=== PATIENT | female | born 1975 | race Caucasian/White ===

== ENCOUNTER 2017-02-23 12:00 | Outpatient (RCR) | payer OTHER ==
[~2017-02-23 12:00] MED LIST: ATIVAN 0.50.5 MG/TAB PO; DHA PO; INSULIN 75/2100 U/ML SQ; MVI; NORCO 325 MG-51 TAB PO; NOVOLIN N100 U/ML SC; ZOLOFT 50MG50 MG PO
== END 2017-02-24 08:21 | disposition home or self-care (01) ==
LOC: MKS.ESL.PT 12:00
DX: S16.1XXD Strain of muscle, fascia and tendon at neck level, subsequent encounter (principal); S39.012D Strain of muscle, fascia and tendon of lower back, subsequent encounter; S76.011D Strain of muscle, fascia and tendon of right hip, subsequent encounter; V87.3 Person injured in collision between car and bus (traffic)

== ENCOUNTER 2017-03-01 10:27 | Outpatient (RCR) | payer OTHER | END 2017-04-06 | LOC: WSOH | DX: S16.1XXA Strain of muscle, fascia and tendon at neck level, initial encounter (principal); S39.012A Strain of muscle, fascia and tendon of lower back, initial encounter; S76.011A Strain of muscle, fascia and tendon of right hip, initial encounter; V73.5XXA Driver of bus injured in collision with car, pick-up truck or van in traffic accident, initial encounter; Y99.0 Civilian activity done for income or pay ==

== ENCOUNTER → 2017-03-02 | Outpatient (CLI) | payer OTHER ==
[~2017-03-02] MED LIST changes: +EPA FISH OIL1 SGL PO; +MULTI VITAMINS1 TAB PO; +VITAMINC1000TA
== END ==
LOC: MC.RAD 07:55
DX: Z12.31 Encounter for screening mammogram for malignant neoplasm of breast (principal); N63 Unspecified lump in breast

== ENCOUNTER → 2017-03-09 | Outpatient (CLI) | payer OTHER | LOC: MC.RAD 10:54 | DX: N63 Unspecified lump in breast (principal) ==

== ENCOUNTER 2017-05-04 10:08 | Emergency (ER) | payer OTHER ==
[~2017-05-04] VITALS: Ht 157.5 cm; Wt 92.3 kg
[~2017-05-04 10:08] MED LIST changes: -EPA FISH OIL1 SGL PO; -MULTI VITAMINS1 TAB PO; -VITAMINC1000TA
[2017-05-04 10:19] VITALS: BP 127/71; TEMP 98.8
[2017-05-04 11:14] LABS: BASO % 0.3 % (0.0-2.0); EOS # 0.3 (0.0-0.7); EOS % 2.8 % (0-4.0); GRAN % 55.8 % (42.2-75.2); HEMATOCRIT 43.2 % (37.0-47.0); HEMOGLOBIN 14.6 g/dl (12.5-16.0); LYMPH # 3.3 (1.2-3.4); LYMPH % 36.7 % (20.0-51.0); MEAN CELL VOLUME 90 fl (80.0-100.0); MEAN CORPUSCULAR HEMOGLOBIN 31 pg (27.0-31.0); MEAN CORPUSCULAR HGB CONC 34 g/dl (33.0-37.0); MEAN PLATELET VOLUME 9.2 fl (7.4-10.4); MONO # 0.4 (0.1-0.6); PLATELET COUNT 255 K/mm3 (130-400); RED BLOOD COUNT 4.79 M/mm3 (4.10-5.30); REDCELL DISTRIBUTION WIDTH-CV 12.9 % (11.5-14.5); WHITE BLOOD COUNT 8.9 K/mm3 (4.8-10.8)
[2017-05-04 11:23] LABS: ADJUSTED CALCIUM 9.3 mg/dL (8.4-10.2); ALBUMIN 4.5 gm/dL (3.5-5.0); BILIRUBIN,TOTAL 0.4 mg/dL (0.0-1.0); CALCIUM 9.7 mg/dL (8.4-10.2); CREATININE, serum 0.62 mg/dL (0.52-1.25); POTASSIUM 3.9 mmol/L (3.4-5.0); TOTAL PROTEIN 7.8 gm/dL (6.4-8.2)
[2017-05-04 12:30] VITALS: PULSE 66
== END 2017-05-04 13:13 | disposition home or self-care (01) ==
LOC: COL.ER 10:08
PROVIDERS: Nurse Practitioner
DX: K46.9 Unspecified abdominal hernia without obstruction or gangrene (principal); E78.5 Hyperlipidemia, unspecified; F17.210 Nicotine dependence, cigarettes, uncomplicated; Z90.710 Acquired absence of both cervix and uterus; Z98.51 Tubal ligation status
CPT/HCPCS: Q9967

== ENCOUNTER 2017-05-21 08:57 | Day surgery (SDC) | payer OTHER ==
[~2017-05-21] VITALS: Ht 157.5 cm; Wt 93.0 kg
[2017-05-21] VITALS (7 sets, daily range): BP systolic 96–131; BP diastolic 47–74; PULSE 57–82; TEMP 97–97.8
[2017-05-21] MEDS ORDERED: MULTI VITAMINS1 TAB PO (10:58)
[2017-05-21] MEDS ORDERED: EPA FISH OIL1 SGL PO (10:59)
[2017-05-21] MEDS ORDERED: VITAMINC1000TA (11:00)
[2017-05-22 00:19] VITALS: BP 101/43; PULSE 50; TEMP 98.9
== END 2017-05-22 07:35 | disposition home or self-care (01) ==
LOC: MEDICAL 08:57 → SDCO 08:57 → MEDICAL 16:42 → SDCO 05-22 07:35
DX: K43.6 Other and unspecified ventral hernia with obstruction, without gangrene (principal); K42.0 Umbilical hernia with obstruction, without gangrene; F32.9 Major depressive disorder, single episode, unspecified; F17.210 Nicotine dependence, cigarettes, uncomplicated; E66.9 Obesity, unspecified; Z68.36 Body mass index [BMI] 36.0-36.9, adult; Z90.710 Acquired absence of both cervix and uterus; Z83.3 Family history of diabetes mellitus
CPT/HCPCS: OP; C1713; C1781; J0330; J1100; J1170; J1885; J2175; J2370; J2405; J2704; J2710; J2765; J3010; J7120

== ENCOUNTER → 2017-10-11 | Outpatient (CLI) | payer BC ==
[~2017-10-11] MED LIST changes: +EPA FISH OIL1 SGL PO; +MULTI VITAMINS1 TAB PO; +VITAMINC1000TA
== END ==
LOC: MC.RAD 08:51
DX: N64.89 Other specified disorders of breast (principal)

== ENCOUNTER → 2017-10-22 | Outpatient (REF) ==
[2017-10-22 14:38] LABS: BASO # 0.1 (0.0-0.2); BASO % 0.4 % (0.0-2.0); GRAN % 84.9 % (42.2-75.2); HEMATOCRIT 40.2 % (37.0-47.0); HEMOGLOBIN 13.6 g/dl (12.5-16.0); LYMPH # 1.5 (1.2-3.4); LYMPH % 10.9 % (20.0-51.0); MEAN CELL VOLUME 91 fl (80.0-100.0); MEAN CORPUSCULAR HEMOGLOBIN 31 pg (27.0-31.0); MEAN CORPUSCULAR HGB CONC 34 g/dl (33.0-37.0); MEAN PLATELET VOLUME 9.5 fl (7.4-10.4); MONO # 0.5 (0.1-0.6); MONO % 3.6 % (1.7-9.3); PLATELET COUNT 192 K/mm3 (130-400); RED BLOOD COUNT 4.42 M/mm3 (4.10-5.30); REDCELL DISTRIBUTION WIDTH-CV 12.3 % (11.5-14.5)
[2017-10-22 14:54] LABS: ALBUMIN 3.6 gm/dL (3.5-5.0); BILIRUBIN,TOTAL 0.4 mg/dL (0.0-1.0); CALCIUM 9.1 mg/dL (8.4-10.2); CREATININE, serum 0.62 mg/dL (0.52-1.25); POTASSIUM 3.7 mmol/L (3.4-5.0); TOTAL PROTEIN 6.7 gm/dL (6.4-8.2)
== END ==
LOC: ZCOL.LAB 14:29
PROVIDERS: Nurse Practitioner Family
DX: Z01.89 Encounter for other specified special examinations (principal)

== ENCOUNTER → 2019-02-15 | Outpatient (CLI) | payer BC | LOC: MC.RAD 10:00 | DX: Z12.31 Encounter for screening mammogram for malignant neoplasm of breast (principal) ==

== ENCOUNTER → 2020-03-28 | Outpatient (CLI) | payer BC | LOC: MC.RAD 08:55 | DX: Z12.31 Encounter for screening mammogram for malignant neoplasm of breast (principal) ==

== ENCOUNTER → 2021-04-29 | Outpatient (CLI) | payer BC | LOC: MC.RAD 13:02 | DX: Z12.31 Encounter for screening mammogram for malignant neoplasm of breast (principal) ==

== ENCOUNTER → 2022-04-30 | Outpatient (CLI) | payer BC | LOC: MC.RAD 08:49 | DX: Z12.31 Encounter for screening mammogram for malignant neoplasm of breast (principal) ==